=== PATIENT | male | born 1970 | race Caucasian/White ===

== ENCOUNTER 2017-03-11 10:26 | Emergency (ER) | payer OTHER ==
[~2017-03-11] VITALS: Ht 182.9 cm; Wt 95.2 kg
== END 2017-03-11 13:55 | disposition home or self-care (01) ==
LOC: ED 10:26
PROC: 0HQGXZZ Repair Left Hand Skin, External Approach (ICD-10-PCS; principal; 2017-03-11)
DX: S61.217A Laceration without foreign body of left little finger without damage to nail, initial encounter (principal); W26.9XXA Contact with unspecified sharp object(s), initial encounter
CPT/HCPCS: 12001; 99282